=== PATIENT | male | born 2000 | race Caucasian/White ===

== ENCOUNTER 2019-10-24 14:18 | Emergency (ER) | payer OTHER ==
--- NOTE | 2019-10-24 14:43 | PDOC ---
Rapid Medical Evaluation Time Seen by Provider: 10/24/19 14:37 Medical Evaluation: 10/24/19 14:43 I have performed a brief in-person evaluation of this patient. The patient presents with a chief complaint of:L ear pain today Pertinent physical exam findings:stable, well meaghan I have ordered the following:nothing The patient will proceed to the ED for further evaluation. Discharge Disposition - Diagnosis Left ear pain - Referrals - Patient Instructions - Post Discharge Activity
[2019-10-24 15:06] VITALS: BP 105/59; PULSE 87; TEMP 98; BMI 22.6
--- NOTE | 2019-10-24 15:20 | PDOC ---
History of Present Illness - General Chief Complaint: Ear Problem Stated Complaint: LT EAR PAIN Time Seen by Provider: 10/24/19 14:37 - History of Present Illness Initial Comments: 10/24/19 15:18 19-year-old with left ear pain x2 hours no trauma. No comorbidities. No systemic symptoms. Past History - Medical History Allergies/Adverse Reactions: Allergies Allergy/AdvReac Type Severity Reaction Status Date / Time No Known Allergies Allergy Verified 10/24/19 14:54 - Psycho-Social/Smoking History Smoking History: Never smoked - Substance Abuse Hx (Audit-C & DAST Scrn) How often the patient has a drink containing alcohol: Never Score: In Men: 4 or > Positive; In Women: 3 or > Positive: 0 Screen Result (Pos requires Nsg. Audit-10AR): Negative In the last yr the pt used illegal drug/Rx for NonMed reason: No Score: Yes response is considered Positive: 0 Screen Result (Positive result requires Nsg. DAST-10): Negative Review of Systems - Review of Systems Constitutional: No: Fever HEENTM: Yes: Ear Pain *Physical Exam - Vital Signs Last Vital Signs Temp Pulse Resp BP Pulse Ox 98.0 F 87 16 105/59 L 100 10/24/19 14:52 10/24/19 14:52 10/24/19 14:52 10/24/19 14:52 10/24/19 14:52 - Physical Exam 10/24/19 15:18 GENERAL: The patient is awake, alert, and fully oriented, in no acute distress. HEAD: Normal with no signs of trauma. EYES: sclera anicteric, conjunctiva clear. ENT: Ears normal tympanic membranes normal oropharynx clear uvula midline NECK: Normal range of motion EXTREMITIES: Normal range of motion, no edema. No clubbing or cyanosis. No cords, erythema, or tenderness. NEUROLOGICAL: Cranial nerves II through XII grossly intact. PSYCH: Normal mood, normal affect. SKIN: Warm, Dry, normal turgor, no rashes or lesions noted. Medical Decision Making - Medical Decision Making 10/24/19 15:19 Benign examination follow-up with ENT with instructions to return to the e mergency room should symptoms worsen. Patient does point to the TMJ area also recommended anti-inflammatories for possible TMJ syndrome. Follow-up with ENT I have reviewed the pathophysiology with the patient. They are in agreement with the treatment plan all questions were answered to their satisfaction. Understanding for follow-up without fail was also conveyed to the patient. Again they are in agreement. Discharge - Discharge Information Problems reviewed: Yes Clinical Impression/Diagnosis: Left ear pain Condition: Stable Disposition: HOME - Admission No - Follow up/Referral Referrals: Candido Ferrara MD [Primary Care Provider] - Dino Mo MD [Staff Physician] - - Patient Discharge Instructions Additional Instructions: Return to the emergency room for worsening symptoms and without fail follow-up with ear nose and throat doctor in 1 to 2 days for further evaluation and treatment options. Tylenol and Motrin as directed for pain. - Post Discharge Activity
== END 2019-10-24 16:31 | disposition home or self-care (01) ==
LOC: JERFT 14:18
DX: H92.02 Otalgia, left ear (principal)
CPT/HCPCS: 99282-25